=== PATIENT | female | born 1970 | race Caucasian/White ===

== ENCOUNTER 2018-04-14 08:59 | Emergency (ER) | payer BC ==
[~2018-04-14] VITALS: Ht 165.1 cm; Wt 72.6 kg
[2018-04-14 08:59] VITALS: BP_SYST 125
--- NOTE | 2018-04-14 09:05 | NUR ---
Pt placed to ER waiting room in stable condition.
[2018-04-14 09:55] VITALS: BP_SYST 100
--- NOTE | 2018-04-14 10:01 | NUR ---
Pt placed to ER bed 07, report given to NIRMAL Moore.
[2018-04-14] MEDS ORDERED: NACL 0.9% 1,000 ML IV ONE (10:17)
--- NOTE | 2018-04-14 10:17 | NUR ---
ER at bedside examining patient.
[2018-04-14] MEDS ORDERED: MAG HYDROX/AL HYDROX/SIMETH 30 ML, BELLADONNA ALKALOIDS/PHENOBARB 10 ML, LIDOCAINE VISC... PO ONE ×3 (10:30)
[2018-04-14 10:46] LABS: BASOPHILS # (AUTO) 0.1 K/uL (0.0-0.2); BASOPHILS % (AUTO) 2.1 % (0.0-2.0); EOSINOPHILS # (AUTO) 0.2 K/uL (0.0-0.4); EOSINOPHILS % (AUTO) 3.4 % (0.0-4.0); HEMATOCRIT 42.2 % (36-48); HEMOGLOBIN 13.4 g/dL (12.0-16.0); LYMPHOCYTES # (AUTO) 2.1 K/uL (1.0-5.5); LYMPHOCYTES % (AUTO) 30.2 % (20.5-51.5); MEAN CORPUSCULAR HEMOGLOBIN 29 pg (27-31); MEAN CORPUSCULAR HGB CONC 32 % (32-36); MEAN CORPUSCULAR VOLUME 91 fL (79.0-98.0); MONOCYTES # (AUTO) 0.4 K/uL (0.0-1.0); MONOCYTES % (AUTO) 5.8 % (1.7-9.3); NEUTROPHILS # (AUTO) 4.2 K/uL (1.8-7.7); NEUTROPHILS % (AUTO) 58.5 % (40.0-70.0); PLATELET COUNT (AUTO) 486 K/uL (130-430); RED BLOOD CELL COUNT(AUTO) 4.66 MIL/uL (4.2-6.2)
[2018-04-14 10:51] LABS: CALCIUM 9.3 mg/dL (8.4-11.0); CREATININE 0.94 mg/dL (0.55-1.30); POTASSIUM 4.5 mmol/L (3.5-5.1)
[2018-04-14 10:56] LABS: ALBUMIN 4.1 g/dL (3.4-4.8); TOTAL BILIRUBIN 0.3 mg/dL (0.0-1.0)
--- NOTE | 2018-04-14 11:09 | NUR ---
TAKEN TO RADIOLOGY DEPT.
--- NOTE | 2018-04-14 11:11 | NUR ---
RETURNED TO ROOM 7.
[2018-04-14] MEDS ORDERED: MAGNESIUM CITRATE 300 ML ORAL SOLUTION PO ONE (11:30)
[2018-04-14 11:36] LABS: BILIRUBIN,URINE NEGATIVE (NEGATIVE); BLOOD, URINE NEGATIVE (NEGATIVE); CLARITY/URINE CLEAR (CLEAR); COLOR,URINE YELLOW (YELLOW); GLUCOSE,URINE NEGATIVE (NEGATIVE); KETONES,URINE NEGATIVE (NEGATIVE); LEUKOCYTE ESTERASE ,URINE NEGATIVE (NEGATIVE); NITRITE, URINE NEGATIVE (NEGATIVE); PROTEIN URINE NEGATIVE (NEGATIVE); UROBILINOGEN,URINE 0.2 (0.2-1.0)
--- NOTE | 2018-04-14 11:38 | NUR ---
Patient given written and verbal discharge instructions and verbalizes understanding. ER MD discussed with patient the results and treatment provided. Patient in stable condition. ID arm band removed. Patient educated on pain management and to follow up with PMD. Pain Scale 2. Opportunity for questions provided and answered. Medication side effect fact sheet provided.
== END 2018-04-14 11:38 | disposition home or self-care (01) ==
LOC: SED 08:59
DX: K59.00 Constipation, unspecified (principal); R03.0 Elevated blood-pressure reading, without diagnosis of hypertension; Z90.89 Acquired absence of other organs
CPT/HCPCS: 36415; 74018; 76700; 80053; 81003; 81025; 83690; 85025; 99285; J2001; J7030